=== PATIENT | male | born 1995 | race Caucasian/White ===

== ENCOUNTER 2019-05-15 12:31 | Outpatient (CLI) | payer SELFPAY ==
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
== END 2019-05-15 12:32 | disposition home or self-care (01) ==
LOC: WPI 12:37
PROVIDERS: PCP Nurse Practitioner Family; Referring Provider Nurse Practitioner Family; Visit Provider Nurse Practitioner Family
DX: M25.562 Pain in left knee (principal)
CPT/HCPCS: 73564

== ENCOUNTER 2022-03-15 20:19 | Emergency (ER) | payer OTHER, SELFPAY ==
[2022-03-15 20:30] VITALS: BP 160/113; PULSE 79; RESP 18; TEMP 36.6; O2SAT 97; BMI 40.1
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
[2022-03-15 22:17] VITALS: BP 153/90; PULSE 78; RESP 18; O2SAT 96
[2022-03-15 23:13] VITALS: PULSE 89; RESP 17; O2SAT 98
== END 2022-03-15 23:14 | disposition home or self-care (01) ==
PROVIDERS: Emergency Provider Emergency Medicine
DX: S09.90XA Unspecified injury of head, initial encounter (principal); F07.81 Postconcussional syndrome; W20.8XXA Other cause of strike by thrown, projected or falling object, initial encounter
CPT/HCPCS: 70450; 99284

== ENCOUNTER 2024-07-26 09:07 | Inpatient (IN) | payer SELFPAY ==
[2024-07-26 09:10] VITALS: BP 154/87; PULSE 84; RESP 16; TEMP 36.8; O2SAT 98; BMI 37.2
[2024-07-26 09:36] LABS: Basophils % 0.3 %; Eosinophils # 0.2 10^3/uL (0.0-0.8); Eosinophils % 1.3 %; Hematocrit 48.7 % (37-53); Lymphocytes # 2.7 10^3/uL (0.8-4.8); Lymphocytes % 21.5 %; Mean Corpuscular HGB Conc 32.6 g/dL (30-55); Mean Corpuscular Volume 88.7 fl (82-101); Mean Platelet Volume 10.4 fL (7.4-10.4); Monocytes # 0.8 10^3/uL (0.2-0.9); Monocytes % 6.1 %; Neutrophils % 70.4 %; Nucleated Red Blood Cells % 0 %; Platelet Count 337 10^3/cmm (157-399); Red Blood Count 5.49 10^6/uL (3.85-5.65); Red Cell Distribution Width 13.2 % (12.1-15.1); White Blood Count 12.35 10^3/uL (3.29-11.43)
[2024-07-26 09:52] LABS: Amphetamines Screen Urine Negative (Negative); Barbiturates Screen Urine Negative (Negative); Benzodiazepines Screen Urine Negative (Negative); Cocaine Screen Urine Negative (Negative); Opiate Screen Urine Negative (Negative); PCP Screen Urine Negative (Negative); THC Screen Urine Positive (Negative)
--- NOTE | 2024-07-26 09:53 | ED.C_ITS ---
HPI - Psych 2 General: Chief Complaint: Psychiatric Symptoms Stated Complaint: SI Time Seen by Provider: 07/26/24 09:08 Source: patient and family (mother) Mode of arrival: ambulatory Limitations: no limitations History of Present Illness: Patient is a 28-year-old male who presents to ED today along with his mother for evaluation of depression and suicidal ideation. Patient states he has felt suicidal for a few months but worse over the past few weeks. Mother states he has given up position of all of his guns as he was fearful he might use them to harm himself. At some point he was seen at a clinic and decided to treat his depression naturally and was placed on vitamin supplements and [place]'s wort. Patient has also been taking something to help with anxiety. MD complaint: suicidal ideation and feels depressed Onset (ago): week(s) Duration: constant History of same: Yes Relieving factors: none Exacerbating factors: other ( life stress ) Associated psychiatric symptoms: depression and suicidal ideation Associated symptoms: Reports depression and suicidal ideation; Deny auditory hallucinations, visual hallucinations or homicidal ideation Treatments prior to arrival: none If self harm: admits thoughts of self harm Related Data Previous Rx's ?Medication ?Instructions ?Recorded metoclopramide HCl 10 mg tablet 10 mg PO Q6H PRN nause a and 03/15/22 (Reglan) vomiting #28 tabs Allergies Allergy/AdvReac Type Severity Reaction Status Date / Time No Known Allergies Allergy Verified 03/15/22 20:33 Review of Systems 2 Const: Denies: fever(s) or fatigue Card: Denies: chest pain, palpitations, lightheadedness or syncope Resp: Denies: dyspnea GI: Denies: abdominal pain, nausea, vomiting or diarrhea Skin/Breast: Denies: rash Neuro: Denies: headache(s) Psych: Reports: anxiety, depression, hopelessness and suicidal ideation; Denies: paranoia, visual hallucinations, auditory hallucinations or homicidal ideation PFSH ED 2 PFSH: Medical History No significant past medical history Surgical History No significant past surgical history Physical Exam 2 Const: COMMON NORMALS: no acute distress, patient oriented x3, no limitations, alert and well nourished GENERAL APPEARANCE: cooperative NUTRITIONAL APPEARANCE: obese ORIENTATION/CONSCIOUSNESS: Yes awake, Yes oriented to place and Yes oriented to time Resp: COMMON NORMALS: normal respiratory effort and clear to auscultation bilaterally AUSCULTATION: clear to auscultation bilaterally Cardio: COMMON NORMALS: regular rate and regular rhythm RATE: regular rate RHYTHM: regular rhythm Neuro: COMMON NORMALS: patient oriented x3, moves all extremities, no focal motor deficits, no sensory deficits noted and gait normal S ENSORIUM/ORIENTATION: Yes alert, Yes oriented to place and Yes oriented to time Psych: COMMON NORMALS: mental status grossly normal, Normal thought process present, cooperative, normal affect, speech normal, activity/motor behavior normal, denies hallucinations and denies homicidal ideation APPEARANCE: Yes grossly normal ATTITUDE: Yes calm ACTIVITY/MOTOR BEHAVIOR: Yes appropriate eye contact and No psychomotor agitation SPEECH: Yes normal speech MOOD & AFFECT: Yes euthymic mood THOUGHT PROCESS: Normal thought process present ATTENTION/CONCENTRATION: Yes attention grossly intact and Yes concentration grossly intact MEMORY/COGNITION: Yes memory grossly intact and Yes cognition grossly intact INSIGHT: Good insight present (Psych) JUDGEMENT: Good judgement present (Psych) Course 2 Consultations: Consultation #1: Dr. Coy-admits to NPU Vital Signs: Vital signs: Vital Signs Temperature 98.2 F 07/26/24 09:10 Pulse Rate 84 07/26/24 09:10 Respiratory Rate 16 07/26/24 09:10 Blood Pressure 154/87 07/26/24 09:10 Pulse Oximetry 98 07/26/24 09:10 Oxygen Delivery Me thod Room Air 07/26/24 09:10 [facility] - Psych Medical Decision Making Patient will be an admit to Dr. Coy to NPU. I will place an affidavit on this chart. Lab Data 07/26/24 09:24 07/26/24 09:24 Laboratory Results WBC 12.35 10^3/uL (3.29-11.43) H 07/26/24 09:24 RBC 5.49 10^6/uL (3.85-5.65) 07/26/24 09:24 Hgb 15.90 g/dL (11.27-16.99) 07/26/24 09:24 Hct 48.7 % (37-53) 07/26/24 09:24 MCV 88.7 fl (82-101) 07/26/24 09:24 MCH 29.0 pg (27-33) 07/26/24 09:24 MCHC 32.6 g/dL (30-55) 07/26/24 09:24 RDW 13.2 % (12.1-15.1) 07/26/24 09:24 Plt Count 337 10^3/cmm (157-399) 07/26/24 09:24 MPV 10.4 fL (7.4-10.4) 07/26/24 09:24 Neut % (Auto) 70.4 % 07/26/24 09:24 Lymph % (Auto) 21.5 % 07/26/24 09:24 [place] % (Auto) 6.1 % 07/26/24 09:24 Eos % (Auto) 1.3 % 07/26/24 09:24 Baso % (Auto) 0.3 % 07/26/24 09:24 Neut # (Auto) 8.70 10^3/uL (1.8-7.7) H 07/26/24 09:24 Lymph # (Auto) 2.7 10^3/uL (0.8-4.8) 07/26/24 09:24 [place] # (Auto) 0.8 10^3/uL (0.2-0.9) 07/26/24 09:24 Eos # (Auto) 0.2 10^3/uL (0.0-0.8) 07/26/24 09:24 Baso # (Auto) 0.0 10^3/uL (0.0-0.1) 07/26/24 09:24 Nucleated RBC % (auto) 0 % 07/26/24 09:24 Nucleated RBCs # 0.0 /100WBC 07/26/24 09:24 Urine Opiates Screen Negative ng/mL (Negative) 07/26/24 09:30 Ur Barbiturates Screen Negative ng/mL (Negative) 07/26/24 09:30 Ur Phencyclidine Scrn Negative ng/mL (Negative) 07/26/24 09:30 Ur Amphetamines Screen Negative ng/mL (Negative) 07/26/24 09:30 U Benzodiazepines Scrn Negative ng/mL (Negative) 07/26/24 09:30 Urine Cocaine Screen Negative ng/mL (Negative) 07/26/24 09:30 U Marijuana (THC) Screen Positive ng/mL (Negative) H 07/26/24 09:30 No radiology studies performed this visit Discharge Plan Discharge Patient Disposition: Admitted As Inpatient Clinical Impression: Suicidal ideation Depression Qualifiers: Depression Type: unspecified Qualified Code(s): F32.A - Depression, unspecified Condition: Stable Coding Level of Care Code ED Concessions Manager for Lindsey Pollock
[2024-07-26 09:54] LABS: Alanine Aminotransferase 89 U/L (0-41); Albumin Level 4.4 g/dL (3.5-5.2); Alkaline Phosphatase 90 U/L (40-130); Anion Gap 18.4 (5-19); Aspartate Amino Transferase 32 U/L (0-40); Blood Urea Nitrogen 12 mg/dL (6-20); Calcium 9.3 mg/dL (8.5-10.5); Carbon Dioxide 21 mmol/L (22-29); Chloride 101 mmol/L (98-107); Creatinine Clr Calc Pharmacy 196.4407; Globulin 3.3 g/dL (1.3-4.6); Glomerular Filtration Rate 114.3 mL/min (90-130); Glucose 141 mg/dL (65-115); Osmolality Calculated 286 mOsm/kg (285-295); Potassium 3.4 mmol/L (3.5-5.1); Sodium 137 mmol/L (136-145); Total Bilirubin 0.5 mg/dL (0.15-1.2); Total Protein 7.7 g/dL (6.6-8.7)
[2024-07-26 09:55] LABS: Acetaminophen < 5.0 ug/mL (10-30); Alcohol Level < 10 mg/dL (0-10); Salicylate < 0.3 mg/dL (3-10)
[2024-07-26 11:18] VITALS: PULSE 81; O2SAT 99
[2024-07-26 11:30] VITALS: BP 154/101; PULSE 72; RESP 16; TEMP 36.8; O2SAT 96
--- NOTE | 2024-07-26 13:21 | PC.NURSE ---
Admission assessment note Patient came into the ED for increase in depression and suicidal ideation. Patient reports that he has fleeting suicidal thoughts of driving his truck into traffic so for this reason, he has not been driving. Patient has a previous suicide attempt 15 to 18 years ago. Patient has a good support from a friend named Zelalem. Patient smokes weed and smokes a few cigarrettes per day, but is trying to switch back to tobacco pouches. Patient was at [facility] 1.5 months ago for heart flutter, high BP and anxiety.
[2024-07-26 14:00] VITALS: BP 141/96; PULSE 59; TEMP 36.9; O2SAT 96
[2024-07-26] MEDS: nicotine 2 mg Gum BUCCAL ×3 (14:57→21:53)
[2024-07-26 17:09] LABS: Glucose Point of Care 321 mg/dL (70-110)
--- NOTE | 2024-07-26 18:54 | PC.NURSE ---
Patient has a recent anti-hypertensive medication in home medication list. Per patient, he is no longer taking this medication, that he is managing his blood pressure through diet. Patient also has hydroxyzine PRN in his home medication list. Patient said that he doesn't like how this med makes him feel; this medication makes him feel too tired.
[2024-07-26 20:26] VITALS: BP 154/88; PULSE 68; RESP 17; TEMP 36.8; O2SAT 95
[2024-07-27 06:00] VITALS: BP 142/93; PULSE 78; RESP 17; TEMP 36.3; O2SAT 98
[2024-07-27] MEDS: cyanocobalamin 1,000 mcg Tablet 500 MCG PO (08:33)
[2024-07-27] MEDS: flu vacc pf 24-25 (6 mos+) SYRINGE 45 MCG IM (08:33)
[2024-07-27] MEDS: multivitamin therapeutic Tablet 1 TAB PO (08:33)
--- NOTE | 2024-07-27 08:49 | P.NPUHP_ITS ---
Providers/Chief Complaint 2 Admitting Physician: Aung Coy MD Chief Complaint: SI HPI NPU History of Present Illness David Duvall is a 28 year old male who presented to the emergency department with the following report: Chief Complaint: Psychiatric Symptoms Stated Complaint: SI Time Seen by Provider: 07/26/24 09:08 Source: patient and family (mother) Mode of arrival: ambulatory Limitations: no limitations History of Present Illness: Patient is a 28-year-old male who presents to ED today along with his mother for evaluation of depression and suicidal ideation. Patient states he has felt suicidal for a few months but worse over the past few weeks. Mother states he has given up position of all of his guns as he was fearful he might use them to harm himself. At some point he was seen at a clinic and decided to treat his depression naturally and was placed on vitamin supplements and Grottoes's wort. Patient has also been taking something to help with anxiety. complaint: suicidal ideation and feels depressed Onset (ago): week(s) Duration: constant History of same: Yes Relieving factors: none Exacerbating factors: other ( life stress ) Associated psychiatric symptoms: depression and suicidal ideation Associated symptoms: Reports depression and suicidal ideation; Deny auditory hallucinations, visual hallucinations or homicidal ideation Treatments prior to arrival: none If self harm: admits thoughts of self harm. He was admitted to the neuropsychiatric unit for definitive treatment of those issues. He is unknown to [facility] through inpatient or outpatient services. 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 History of the present complaint The patient reports experiencing a significant change in mental state within the past week, describing a shift from a fight or flight response to feeling stuck in freeze. This change has been accompanied by an increase in suicidal thoughts, which have become more frequent and intense. 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 The usual coping mechanisms, such as relying on friends and talking to people, have not been effective in alleviating these thoughts. Approximately a month to a month and a half ago, the patient visited the emergency room due to a stress-induced anxiety attack. This episode occurred while dulce with friends before work, during which the patient experienced sensations of the heart switching on and off and an ear infection on the right side that was pulling blood. The patient describes the suicidal thoughts as a relatively new experience and recalls a past incident where they acted on these thoughts by ingesting a handful of random pills, which led to vomiting blood but did not result in hospitalization. The patient has a history of depression dating back to the age of [age], characterized by low mood, feelings of helplessness and worthlessness, low energy, and lack of motivation. There have been times when the patient felt indifferent about waking up the next day. Anxiety has recently become a more prominent issue, with concerns about turning 29 and still working in jobs perceived as suitable for high school students. 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 The patient has a history of ADHD, diagnosed during childhood, and was prescribed Adderall at the age of 12 or 13. However, the medication was discontinued after three months due to adverse effects on blood pressure. The patient also recalls being prescribed a natural supplement as a counter to Adderall, though the name is not remembered. The patient continues to experience symptoms of ADHD, such as difficulty focusing and being easily distracted. The patient has a history of self-injurious behavior, including cutting, with the last incident occurring six years ago. There is also a history of intrusive thoughts related to cleanliness, such as the need to wash hands to alleviate anxiety. The patient reports experiencing auditory hallucinations while working night shifts, such as hearing voices or sounds that others do not perceive. Family history includes high blood pressure and borderline personality disorder on the mother's side, as well as a cousin with seizures. There is a history of addiction issues, including gambling and drug addiction, among the patient's extended family, though not with the patient's parents. The patient suspects that an uncle, described as the family alcoholic, may have struggled with suicidal thoughts during the patient's childhood and teenage years. The patient began using tobacco products at the age of 12, initially smoking cigarettes before switching to vaping at age 22. Recently, the patient has been using nicotine pouches, which led to nicotine sickness after excessive use during a particularly overwhelming week. Cannabis use began around age 16, with current use reported as once a night or every other day. The patient denies regular use of other drugs but mentions a past experience with acid that felt like a placebo effect. There is no history of drug or alcohol-related legal issues or mandatory rehabilitation programs. The patient reports a history of speech therapy and special education classes during early schooling due to a speech impediment and the need for stimulating toys. The patient's parents were not at the time of , and the patient was described as a sleeper, not engaging with others like typical babies. Mental health history Has been dealing with depression since age [age], characterized by low mood, feelings of helplessness, worthlessness, and low energy. Experienced suicidal thoughts recently, which led to hospitalization due to overwhelming stress from work and personal life. Previously attempted suicide by ingesting pills, resulting in vomiting blood, but did not require hospitalization. Has a history of self-injurious behavior, including cutting, last occurring six years ago. Anxiety has become a significant issue recently, with stress-induced anxiety attacks leading to an ER visit about a month and a half ago. Diagnosed with ADHD as a child and was prescribed Adderall at age 12 or 13, which was discontinued after three months due to adverse effects on blood pressure. Currently taking hydroxyzine for anxiety and itching, along with Toy's Wort, B12, and vitamin D. No prior outpatient mental health treatment but expressed interest in obtaining a therapist. Family history includes high blood pressure and BPD on the maternal side, and addiction issues on both sides of the family. Possible suicide attempts by an uncle, who struggled with alcoholism. 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 Experiences financial stress related to bills. Engages in dulce with friends before work. Has a history of tobacco use starting at age 12, initially smoking cigarettes, then switching to vaping at age 22, and currently using Sadiq packs. Experienced increased nicotine consumption recently due to stress. Alcohol use is infrequent, about once or twice a year. Cannabis use began around age 16, currently used once a night or every other day. No other drug use actively pursued, though has taken drinks at parties for safety reasons. No history of drug or alcohol-related legal issues or mandatory classes. No current exercise or dietary habits mentioned. Family history includes high blood pressure and BPD on the mother's side, and addiction issues in extended family. Parents were not at and later. Meds NPU Home Medications ?Medication ?Instructions ?Recorded ?Confirmed ?Last Taken ?Type hydroxyzine HCl 10 mg tablet 10 mg PO TID PRN Itching 07/26/24 07/26/24 Unknown History Allergies Allergy/AdvReac Type Severity Reaction Status Date / Time No Known Allergies Allergy Verified 03/15/22 20:33 PFSH NPU 2 PFSH: Medical History No significant past medical history Surgical History No significant past surgical history Mental Status Exam 2 MSE Comments: This is an obese white male in hospital scrubs with limited grooming and adequate eye contact. No abnormal movements except for mild psychomotor retardation. Cooperative with exam in mild to moderate distress. Speech was slightly decreased rate and volume. Mood described as okay, affect subdued. Thought process organized. Thought content: Patient denied current suicidal or homicidal ideation, there were no delusions reported or noted, he denied any auditory or visual hallucinations. Reports experiencing suicidal thoughts heavily in the past week, with a history of a past suicide attempt involving ingestion of pills. Reports hearing things while working night shifts, but confirmed with a friend that they were not hallucinations. Reports experiencing anxiety, with a history of a stress-induced anxiety attack about a month and a half ago. Reports dealing with depression since age [age], with low mood, feelings of helplessness, worthlessness, low energy, and low motivation. 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 Mentions job stress, financial issues, and working night shifts as stressors. Describes low mood and feelings of helplessness and worthlessness. Vitals/I&O/Wt Last Vital Signs Temp 97.4 F L 07/27/24 06:00 Pulse 78 07/27/24 06:00 Resp 17 07/27/24 06:00 BP 142/93 07/27/24 06:00 Pulse Ox 98 07/27/24 06:00 O2 Del Method Room Air 07/27/24 06:00 Weight last 48 hrs Weight 131.542 kg Data NPU 07/26/24 09:24 07/26/24 09:24 A&P Assessment and plan (1) Depression: Qualifiers: Depression Type: unspecified Qualified Code(s): F32.A - Depression, unspecified (2) Suicidal ideation: (3) Anxiety: (4) Cannabis use disorder: Plan This is a 28 year old white male with a history of mental health and addiction issues with genetic loading for mental health, addiction and lethality issues who presents with significant depression and suicidality off of medication but open to treatment. The patient is experiencing significant depression, characterized by low mood, feelings of helplessness, and worthlessness, which have been present since childhood. Recently, there has been an increase in suicidal thoughts, which are new to the patient, and a history of a past suicide attempt was disclosed. Anxiety has also become a prominent issue, exacerbated by work-related stress and life circumstances. The patient has a history of ADHD diagnosed in childhood, which continues to affect focus and attention. There is no prior history of psychiatric hospitalization or outpatient mental health treatment, but the patient expressed a desire to seek therapy. 1. Start Wellbutrin XL 150 mg p.o. daily 2. Encourage individual, group and milieu therapy 3. Continue q-15 minute check for safety 4. Recommend sober living treatment at the highest level of care to which the patient is willing to commit. PDMP PDMP Reviewed: Not Reviewed Attestations NPU 2 Medical Necessity Statement*: Inpatient hospitalization is medically necessary and the clinically appropriate intervention at this time. We will monitor medications and make changes as indicated. The patient's Likely length of stay is 3-5 days. Coding Level of Care Code Acute Code for [facility] Diagnoses Depression F32.A Depression Type: unspecified Suicidal ideation R45.851 Anxiety F41.9 Cannabis use disorder F12.90
[2024-07-27] MEDS: nicotine 2 mg Gum BUCCAL ×4 (11:57→20:36)
[2024-07-27 14:00] VITALS: BP 154/100; PULSE 75; RESP 16; TEMP 36.6; O2SAT 93
--- NOTE | 2024-07-27 15:41 | PC.NURSE ---
Dr. Coy seen patient and gave verbal orders for Wellbuturin SR 150 mg PO one time Now and Wellbuturin XL 150 mg PO Daily at 0900.
[2024-07-27] MEDS: buPROPion SR (12 HR) 150 mg Tablet PO (15:49)
[2024-07-27 20:27] VITALS: BP 161/92; PULSE 82; RESP 18; TEMP 37.3; O2SAT 96
[2024-07-28 06:00] VITALS: BP 134/96; PULSE 76; RESP 17; TEMP 36.5; O2SAT 98
[2024-07-28] MEDS: multivitamin therapeutic Tablet 1 TAB PO (08:06)
[2024-07-28] MEDS: cyanocobalamin 1,000 mcg Tablet 500 MCG PO (08:06)
[2024-07-28] MEDS: buPROPion XL (24 HR) 150 mg Tablet PO (08:06)
[2024-07-28] MEDS: nicotine 2 mg Gum BUCCAL ×5 (08:07→21:14)
[2024-07-28] MEDS: acetaminophen 325 mg Tablet PO (10:48)
[2024-07-28 14:00] VITALS: BP 134/84; PULSE 93; RESP 18; TEMP 36.8; O2SAT 94
--- NOTE | 2024-07-28 16:41 | W.PM.NPUPNS ---
Subjective NPU Subjective: Patient presented today reporting that he is doing a little better. He denied any side effects from the Wellbutrin and was focused on the logistics of this situation. We discussed the fact that the social work team will be back tomorrow and that after they talk to him about possible discharge options we would have a more accurate discussion about when discharge could happen. We discussed the importance of him having appropriate follow-up and is having a sense that the Wellbutrin was helpful. He denied any additional concerns. Mental Status Exam MSE Comments: This is an obese white male in hospital scrubs with limited grooming and adequate eye contact. No abnormal movements except for mild psychomotor retardation. Cooperative with exam in mild to moderate distress. Speech was slightly decreased rate and volume. Mood described as okay, affect subdued. Thought process organized. Thought content: Patient denied current suicidal or homicidal ideation, there were no delusions reported or noted, he denied any auditory or visual hallucinations. Reports experiencing suicidal thoughts heavily in the past week, with a history of a past suicide attempt involving ingestion of pills. Reports hearing things while working night shifts, but confirmed with a friend that they were not hallucinations. Reports experiencing anxiety, with a history of a stress-induced anxiety attack about a month and a half ago. Reports dealing with depression since age [age], with low mood, feelings of helplessness, worthlessness, low energy, and low motivation. 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 Mentions job stress, financial issues, and working night shifts as stressors. Describes low mood and feelings of helplessness and worthlessness. Vitals/I&O/Wt Last Vital Signs Temp 98.2 F 07/28/24 14:00 Pulse 93 07/28/24 14:00 Resp 18 07/28/24 14:00 BP 134/84 07/28/24 14:00 Pulse Ox 94 07/28/24 14:00 O2 Del Method Room Air 07/28/24 06:00 Data NPU 07/26/24 09:24 07/26/24 09:24 A&P Assessment and plan (1) Depression: Qualifiers: Depression Type: unspecified Qualified Code(s): F32.A - Depression, unspecified (2) Suicidal ideation: (3) Anxiety: (4) Cannabis use disorder: Plan This is a 28 year old white male with a history of mental health and addiction issues with genetic loading for mental health, addiction and lethality issues who presents with significant depression and suicidality off of medication but open to treatment. The patient is experiencing significant depression, characterized by low mood, feelings of helplessness, and worthlessness, which have been present since childhood. Recently, there has been an increase in suicidal thoughts, which are new to the patient, and a history of a past suicide attempt was disclosed. Anxiety has also become a prominent issue, exacerbated by work-related stress and life circumstances. The patient has a history of ADHD diagnosed in childhood, which continues to affect focus and attention. There is no prior history of psychiatric hospitalization or outpatient mental health treatment, but the patient expressed a desire to seek therapy. 1. Started Wellbutrin XL 150 mg p.o. daily 2. Encourage individual, group and milieu therapy 3. Continue q-15 minute check for safety 4. Recommend sober living treatment at the highest level of care to which the patient is willing to commit. PDMP PDMP Reviewed: Not Reviewed Attestations NPU Medical Necessity Statement*: Inpatient hospitalization is medically necessary and the clinically appropriate intervention at this time. We will monitor medications and make changes as indicated. The patient's Likely length of stay is 2-4 days. Coding Level of Care Code Acute Code for [facility] Diagnoses Depression F32.A Depression Type: unspecified Suicidal ideation R45.851 Anxiety F41.9 Cannabis use disorder F12.90
[2024-07-28 19:59] VITALS: BP 140/99; PULSE 78; RESP 18; TEMP 37.4; O2SAT 94
[2024-07-29] MEDS: trazodone 50 mg Tablet PO (00:31)
[2024-07-29 06:00] VITALS: BP 103/69; PULSE 68; RESP 18; TEMP 36.5; O2SAT 97
[2024-07-29] MEDS: cyanocobalamin 1,000 mcg Tablet 500 MCG PO (08:16)
[2024-07-29] MEDS: buPROPion XL (24 HR) 150 mg Tablet PO (08:18)
[2024-07-29] MEDS: multivitamin therapeutic Tablet 1 TAB PO (08:18)
[2024-07-29] MEDS: nicotine 2 mg Gum BUCCAL ×4 (10:23→20:34)
[2024-07-29 14:00] VITALS: BP 150/90; PULSE 69; RESP 18; TEMP 36.6; O2SAT 97
[2024-07-29] MEDS: amlodipine 5 mg Tablet PO (15:54)
--- NOTE | 2024-07-29 18:22 | P.NPUPN_ITS ---
Subjective NPU 2 Subjective: Patient presented today reporting that he is doing better overall for the depression and those concerning thoughts he had at admission but reports that he would like to make sure that he is doing better overall. He had agreed to restart his antihypertensive medication he had been taking before as his blood pressures have been running high. He reports that now that he addressing all these issues that maybe he could do something for his memory and attention. We discussed his history with Adderall and it having a profound effect on his appetite that was not manageable. We discussed the risks, benefits and alternatives of considering Strattera and he understood and agreed to proceed as is documented in this note. He denied any side effects to the medication. Mental Status Exam 2 MSE Comments: This is an obese white male in hospital scrubs with limited grooming and adequate eye contact. No abnormal movements except for mild psychomotor retardation. Cooperative with exam in mild to moderate distress. Speech was slightly decreased rate and volume. Mood described as okay, affect subdued. Thought process organized. Thought content: Patient denied current suicidal or homicidal ideation, there were no delusions reported or noted, he denied any auditory or visual hallucinations. Reports experiencing suicidal thoughts heavily in the past week, with a history of a past suicide attempt involving ingestion of pills. Reports hearing things while working night shifts, but confirmed with a friend that they were not hallucinations. Reports experiencing anxiety, with a history of a stress-induced anxiety attack about a month and a half ago. Reports dealing with depression since age [age], with low mood, feelings of helplessness, worthlessness, low energy, and low motivation. 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 Mentions job stress, financial issues, and working night shifts as stressors. Describes low mood and feelings of helplessness and worthlessness. Vitals/I&O/Wt Last Vital Signs Temp 97.9 F 07/29/24 14:00 Pulse 69 07/29/24 14:00 Resp 18 07/29/24 14:00 BP 150/90 07/29/24 14:00 Pulse Ox 97 07/29/24 14:00 O2 Del Method Room Air 07/29/24 06:00 Data NPU 07/26/24 09:24 07/26/24 09:24 A&P Assessment and plan (1) Depression: Qualifiers: Depression Type: unspecified Qualified Code(s): F32.A - Depression, unspecified (2) Suicidal ideation: (3) Anxiety: (4) Cannabis use disorder: Plan This is a 28 year old white male with a history of mental health and addiction issues with genetic loading for mental health, addiction and lethality issues who presents with significant depression and suicidality off of medication but open to treatment. The patient is experiencing significant depression, characterized by low mood, feelings of helplessness, and worthlessness, which have been present since childhood. Recently, there has been an increase in suicidal thoughts, which are new to the patient, and a history of a past suicide attempt was disclosed. Anxiety has also become a prominent issue, exacerbated by work-related stress and life circumstances. The patient has a history of ADHD diagnosed in childhood, which continues to affect focus and attention. There is no prior history of psychiatric hospitalization or outpatient mental health treatment, but the patient expressed a desire to seek therapy. 1. Started Wellbutrin XL 150 mg p.o. daily. Restart antihypertensive that he had been on before once we identify in the chart. Consider Strattera 40 mg p.o. daily for ADHD. 2. Encourage individual, group and milieu therapy 3. Continue q-15 minute check for safety 4. Recommend sober living treatment at the highest level of care to which the patient is willing to commit. PDMP PDMP Reviewed: Not Reviewed Attestations NPU 2 Medical Necessity Statement*: Inpatient hospitalization is medically necessary and the clinically appropriate intervention at this time. We will monitor medications and make changes as indicated. The patient's Likely length of stay is 1-3 days. Coding Level of Care Code Acute Code for [facility] Diagnoses Depression F32.A Depression Type: unspecified Suicidal ideation R45.851 Anxiety F41.9 Cannabis use disorder F12.90
[2024-07-29 19:55] VITALS: BP 142/93; PULSE 74; RESP 17; TEMP 37.2; O2SAT 97
[2024-07-30] MEDS: acetaminophen 325 mg Tablet PO (04:19)
[2024-07-30 06:00] VITALS: BP 121/77; PULSE 66; RESP 18; TEMP 36.4; O2SAT 94
[2024-07-30] MEDS: multivitamin therapeutic Tablet 1 TAB PO (08:53)
[2024-07-30] MEDS: cyanocobalamin 1,000 mcg Tablet 500 MCG PO (08:53)
[2024-07-30] MEDS: amlodipine 5 mg Tablet PO (08:53)
[2024-07-30] MEDS: nicotine 2 mg Gum BUCCAL ×3 (08:53→14:16)
[2024-07-30] MEDS: buPROPion XL (24 HR) 150 mg Tablet PO (08:53)
[2024-07-30] MEDS: atomoxetine 40 mg Capsule PO (14:16)
[2024-07-30 14:25] VITALS: BP 121/77; PULSE 66; RESP 18; TEMP 36.4; O2SAT 94
--- NOTE | 2024-07-30 16:09 | P.NPUDS_ITS ---
Diagnoses at Discharge Discharge Diagnosis (1) Depression: Status: Acute Qualifiers: Depression Type: unspecified Qualified Code(s): F32.A - Depression, unspecified (2) Suicidal ideation: Status: Acute (3) Anxiety: Status: Acute (4) Cannabis use disorder: Status: Acute Reason for Visit Reason for Visit: SI Brief History: HPI NPU History of Present Illness David Duvall is a 28 year old male who presented to the emergency department with the following report: Chief Complaint: Psychiatric Symptoms Stated Complaint: SI Time Seen by Provider: 07/26/24 09:08 Source: patient and family (mother) Mode of arrival: ambulatory Limitations: no limitations History of Present Illness: Patient is a 28-year-old male who presents to ED today along with his mother for evaluation of depression and suicidal ideation. Patient states he has felt suicidal for a few months but worse over the past few weeks. Mother states he has given up position of all of his guns as he was fearful he might use them to harm himself. At some point he was seen at a clinic and decided to treat his depression naturally and was placed on vitamin supplements and [place] wort. Patient has also been taking something to help with anxiety. MD complaint: suicidal ideation and feels depressed Onset (ago): week(s) Duration: constant History of same: Yes Relieving factors: none Exacerbating factors: other ( life stress ) Associated psychiatric symptoms: depression and suicidal ideation Associated symptoms: Reports depression and suicidal ideation; Deny auditory hallucinations, visual hallucinations or homicidal ideation Treatments prior to arrival: none If self harm: admits thoughts of self harm. He was admitted to the neuropsychiatric unit for definitive treatment of those issues. He is unknown to [facility] through inpatient or outpatient services. 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 History of the present complaint The patient reports experiencing a significant change in mental state within the past week, describing a shift from a fight or flight response to feeling stuck in freeze. This change has been accompanied by an increase in suicidal thoughts, which have become more frequent and intense. 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 The usual coping mechanisms, such as relying on friends and talking to people, have not been effective in alleviating these th oughts. Approximately a month to a month and a half ago, the patient visited the emergency room due to a stress-induced anxiety attack. This episode occurred while dulce with friends before work, during which the patient experienced sensations of the heart switching on and off and an ear infection on the right side that was pulling blood. The patient describes the suicidal thoughts as a relatively new experience and recalls a past incident where they acted on these thoughts by ingesting a handful of random pills, which led to vomiting blood but did not result in hospitalization. The patient has a history of depression dating back to the age of [age], characterized by low mood, feelings of helplessness and worthlessness, low energy, and lack of motivation. There have been times when the patient felt indifferent about waking up the next day. Anxiety has recently become a more prominent issue, with concerns about turning 29 and still working in jobs perceived as suitable for high school students. 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 The patient has a history of ADHD, diagnosed during childhood, and was prescribed Adderall at the age of 12 or 13. However, the medication was discontinued after three months due to adverse effects on blood pressure. The patient also recalls being prescribed a natural supplement as a counter to Adderall, though the name is not remembered. The patient continues to experience symptoms of ADHD, such as difficulty focusing and being easily distracted. The patient has a history of self-injurious behavior, including cutting, with the last incident occurring six years ago. There is also a history of intrusive thoughts related to cleanliness, such as the need to wash hands to alleviate anxiety. The patient reports experiencing auditory hallucinations while working night shifts, such as hearing voices or sounds that others do not perceive. Family history includes high blood pressure and borderline personality disorder on the mother's side, as well as a cousin with seizures. There is a history of addiction issues, including gambling and drug addiction, among the patient's extended family, though not with the patient's parents. The patient suspects that an uncle, described as the family alcoholic, may have struggled with suicidal thoughts during the patient's childhood and teenage years. The patient began using tobacco products at the age of 12, initially smoking cigarettes before switching to vaping at age 22. Recently, the patient has been using nicotine pouches, which led to nicotine sickness after excessive use during a particularly overwhelming week. Cannabis use began around age 16, with current use reported as once a night or every other day. The patient denies regular use of other drugs but mentions a past experience with acid that felt like a placebo effect. There is no history of drug or alcohol-related legal issues or mandatory rehabilitation programs. The patient reports a history of speech therapy and special education classes during early schooling due to a speech impediment and the need for stimulating toys. The patient's parents were not at the time of , and the patient was described as a sleeper, not engaging with others like typical babies. Mental health history Has been dealing with depression since age [age], characterized by low mood, feelings of helplessness, worthlessness, and low energy. Experienced suicidal thoughts recently, which led to hospitalization due to overwhelming stress from work and personal life. Previously attempted suicide by ingesting pills, resulting in vomiting blood, but did not require hospitalization. Has a history of self-injurious behavior, including cutting, last occurring six years ago. Anxiety has become a significant issue recently, with stress-induced anxiety attacks leading to an ER visit about a month and a half ago. Diagnosed with ADHD as a child and was prescribed Adderall at age 12 or 13, which was discontinued after three months due to adverse effects on blood pressure. Currently taking hydroxyzine for anxiety and itching, along with [place] Wort, B12, and vitamin D. No prior outpatient mental health treatment but expressed interest in obtaining a therapist. Family history includes high blood pressure and BPD on the maternal side, and addiction issues on both sides of the family. Possible suicide attempts by an uncle, who struggled with alcoholism. 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 Experiences financial stress related to bills. Engages in dulce with friends before work. Has a history of tobacco use starting at age 12, initially smoking cigarettes, then switching to vaping at age 22, and currently using Sadiq packs. Experienced increased nicotine consumption recently due to stress. Alcohol use is infrequent, about once or twice a year. Cannabis use began around age 16, currently used once a night or every other day. No other drug use actively pursued, though has taken drinks at parties for safety reasons. No history of drug or alcohol-related legal issues or mandatory classes. No current exercise or dietary habits mentioned. Family history includes high blood pressure and BPD on the mother's side, and addiction issues in extended family. Parents were not at and later. Hospital Course Hospital Course He slowly acclimated to the individual, group and milieu therapies provided. He presented with reports of depression and suicidality. He has a fairly limited history of mental health treatment. He was started on Wellbutrin XL 150 mg for the depression and also received amlodipine for his high blood pressure which he had not been on before but had stopped, and got trazodone and Vistaril. Additionally he had been having some complaints of his ADHD still being problematic but a history of Adderall causing almost secession of appetite and significant weight loss. Strattera 40 mg was initiated on the day of discharge and he was advised that he could follow-up with his [facility] physician on managing that but that if he was unable to get in there soon enough that he could go to the crisis stabilization center and asked to speak to this conventional mortgage underwriter to manage that in the short run leading up to his appointment at [facility]. He had a positive response to his medications. He worked with the social work team on discharge planning and aftercare. He was able to contract for safety outside of the hospital prior to discharge. During the hospitalization, patient had routine laboratory studies which were within normal limits. Additionally there was a general medical evaluation which was also within normal limits and revealed no new acute processes. At the time of discharge, he denied psychosis or lethality. Mood and anxiety were well managed. Patient endorsed a plan to avoid all drugs of abuse and follow-up with the aftercare recommendations of the treatment team. Patient was evaluated and deemed to be absent credible lethality, and had achieved the maximum benefit from an inpatient hospitalization, so was discharged. Mental Status Exam MSE Comments: This is an obese white male in hospital scrubs with limited grooming and adequate eye contact. No abnormal movements except for mild psychomotor retardation. Cooperative with exam in no acute distress. Speech was more normal rate and volume. Mood described as okay, affect subdued. Thought process organized. Thought content: Patient denied current suicidal or homicidal ideation, there were no delusions reported or noted, he denied any auditory or visual hallucinations. Attention and concentration were intact and memory was reliable but no more formally tested. He was alert and oriented x 3. Insight, judgment and impulse control were all fair. Discharge Data Studies Completed and Pending: Laboratory Results WBC 12.35 10^3/uL (3. 29-11.43) H 07/26/24 09:24 RBC 5.49 10^6/uL (3.8 5-5.65) 07/26/24 09:24 Hgb 15.90 g/dL (11.27 -16.99) 07/26/24 09:24 Hct 48.7 % (37-53) 07/26/24 09:24 MCV 88.7 fl (82-101) 07/26/24 09:24 MCH 29.0 pg (27-33) 07/26/24 09:24 MCHC 32.6 g/dL (30-55) 07/26/24 09:24 RDW 13.2 % (12.1-15.1 ) 07/26/24 09:24 Plt Count 337 10^3/cmm (157 -399) 07/26/24 09:24 MPV 10.4 fL (7.4-10.4 ) 07/26/24 09:24 Neut % (Auto) 70.4 % 07/26/24 09:24 Lymph % (Auto) 21.5 % 07/26/24 09:24 [place] % (Auto) 6.1 % 07/26/24 09:24 Eos % (Auto) 1.3 % 07/26/24 09:24 Baso % (Auto) 0.3 % 07/26/24 09:24 Neut # (Auto) 8.70 10^3/uL (1.8 -7.7) H 07/26/24 09:24 Lymph # (Auto) 2.7 10^3/uL (0.8- 4.8) 07/26/24 09:24 [place] # (Auto) 0.8 10^3/uL (0.2- 0.9) 07/26/24 09:24 Eos # (Auto) 0.2 10^3/uL (0.0- 0.8) 07/26/24 09:24 Baso # (Auto) 0.0 10^3/uL (0.0- 0.1) 07/26/24 09:24 Nucleated RBC % (a uto) 0 % 07/26/24 09:24 Nucleated RBCs # 0.0 /100WBC 07/26/24 09:24 Sodium 137 mmol/L (136-1 45) 07/26/24 09:24 Potassium 3.4 mmol/L (3.5-5 .1) L 07/26/24 09:24 Chloride 101 mmol/L (98-10 7) 07/26/24 09:24 Carbon Dioxide 21 mmol/L (22-29) L 07/26/24 09:24 Anion Gap 18.4 (5-19) 07/26/24 09:24 BUN 12 mg/dL (6-20) 07/26/24 09:24 Creatinine 0.8 mg/dL (0.7-1. 2) 07/26/24 09:24 GFR Calculation 114.3 mL/min (90- 130) 07/26/24 09:24 Glucose 141 mg/dL (65-115 ) H 07/26/24 09:24 POC Glucose 321 mg/dL (70-110 ) H 07/26/24 16:53 Calculated Osmolal ity 286 mOsm/kg (285- 295) 07/26/24 09:24 Calcium 9.3 mg/dL (8.5-10 .5) 07/26/24 09:24 Total Bilirubin 0.5 mg/dL (0.15-1 .2) 07/26/24 09:24 AST 32 U/L (0-40) 07/26/24 09:24 ALT 89 U/L (0-41) H 07/26/24 09:24 Alkaline Phosphata se 90 U/L (40-130) 07/26/24 09:24 Total Protein 7.7 g/dL (6.6-8.7 ) 07/26/24 09:24 Albumin 4.4 g/dL (3.5-5.2 ) 07/26/24 09:24 Globulin 3.3 g/dL (1.3-4.6 ) 07/26/24 09:24 Salicylates < 0.3 mg/dL (3-10 ) L 07/26/24 09:24 Urine Opiates Scre en Negative ng/mL (N egative) 07/26/24 09:30 Acetaminophen < 5.0 ug/mL (10-3 0) L 07/26/24 09:24 Ur Barbiturates Sc reen Negative ng/mL (N egative) 07/26/24 09:30 Ur Phencyclidine S crn Negative ng/mL (N egative) 07/26/24 09:30 Ur Amphetamines Sc reen Negative ng/mL (N egative) 07/26/24 09:30 U Benzodiazepines Scrn Negative ng/mL (N egative) 07/26/24 09:30 Urine Cocaine Scre en Negative ng/mL (N egative) 07/26/24 09:30 U Marijuana (THC) Screen Positive ng/mL (N egative) H 07/26/24 09:30 Ethyl Alcohol < 10 mg/dL (0-10) 07/26/24 09:24 Vitals: Last Vital Signs Temp 97.5 F L 07/30/24 14:25 Pulse 66 07/30/24 14:25 Resp 18 07/30/24 14:25 BP 121/77 07/30/24 14:25 Pulse Ox 94 07/30/24 14:25 O2 Del Method Room Air 07/30/24 06:00 Discharge Plan Discharge Patient Disposition: Home Condition: Stable Prescriptions: New cyanocobalamin (vitamin B-12) [Vitamin B-12] 1,000 mcg Tablet 500 mcg PO DAILY 30 Days Qty: 15 1RF amlodipine 5 mg Tablet 5 mg PO DAILY 30 Days Qty: 30 1RF atomoxetine 40 mg Capsule 40 mg PO DAILY 30 Days Qty: 30 1RF bupropion HCl 150 mg Tablet Extended Release 24 Hr 150 mg PO DAILY 30 Days Qty: 30 1RF trazodone 50 mg Tablet 50 mg PO BEDTIME PRN (Reason: Sleep) 30 Days Qty: 30 1RF Continued hydroxyzine HCl 10 mg tablet 10 mg PO TID PRN (Reason: Itching) 30 Days Qty: 30 1RF Discharge Orders: Discharge Order (Routine); Ordered 07/30/24 Ordered By: Aung Coy Referrals: [facility] [Outside] - 08/06/24 9:00 am (Initial assessment for services with Laura Dominguez) Lam Bernabe FNP-C [Nurse Practitioner] - 08/12/24 4:20 pm Discharge Diet: Regular Discharge Activity: Resume usual activity Patient Instructions: Bupropion (By mouth) (Zyban, Wellbutrin XL, Wellbutrin SR, Wellbutrin), Trazodone (By mouth) (Desyrel, Desyrel Dividose, Oleptro, Trazamine), Amlodipine (By mouth), Atomoxetine (By mouth) (Strattera), Anxiety (DC), Opioid Safety Discharge Attestations NPU Time Spent in Discharge Care*: less than 30 min Specific Discharge Activities: Specific discharge activities: educating patient, discussing with corrections caseworker/social workers/dc planners, docum enting/other paperwork and evaluating patient/reviewing data Coding Level of Care Code Acute Code for Chg Fwd Diagnoses Depression F32.A Depression Type: unspecified Suicidal ideation R45.851 Anxiety F41.9 Cannabis use disorder F12.90
== END 2024-07-30 16:12 | disposition home or self-care (01) | DRG 881 ==
LOC: ER 09:56 → NP 11:08
PROVIDERS: Admitting Provider Psychiatry & Neurology Psychiatry; Emergency Provider Physician Assistant; Visit Provider Psychiatry & Neurology Psychiatry
DX: F32.A Depression, unspecified (principal); R45.851 Suicidal ideations; F41.9 Anxiety disorder, unspecified; E66.9 Obesity, unspecified; Z68.37 Body mass index [BMI] 37.0-37.9, adult; Z91.52 Personal history of nonsuicidal self-harm; F17.290 Nicotine dependence, other tobacco product, uncomplicated
CPT/HCPCS: 36415; 36416; 80053; 80306; 80307; 82962; 85025; 90471; 90686; 97150; 97165; 99285; J9999